=== PATIENT | female | born 2005 | race Caucasian/White ===

== ENCOUNTER 2024-03-22 22:11 | Emergency (ER) | payer MEDICAID ==
[~2024-03-22] VITALS: Ht 160 cm; Wt 75.0 kg
[2024-03-22 22:14] VITALS: BP 109/61; PULSE 70; RESP 20; TEMP 97.4; O2SAT 98
[2024-03-22] MEDS ORDERED: ACETAMINOPHEN 325MG TABLET PO STA (22:24)
[2024-03-23] MEDS ORDERED: CYCL10TA21 MT (00:27)
[2024-03-23] MEDS ORDERED: ACET-2708 MT (00:27)
[2024-03-23] MEDS: ACETAMINOPHEN 325MG TABLET PO NR (01:06)
== END 2024-03-23 02:00 | disposition home or self-care (01) ==
LOC: ER 22:11
DX: M25.511 Pain in right shoulder (principal); M25.562 Pain in left knee; V49.9XXA Car occupant (driver) (passenger) injured in unspecified traffic accident, initial encounter; Y93.89 Activity, other specified; Y92.89 Other specified places as the place of occurrence of the external cause; Y99.8 Other external cause status
CPT/HCPCS: 71045; 73030; 73562; 99284